=== PATIENT | female | born 1995 | race African-American/Black ===

== ENCOUNTER 2017-07-21 23:20 | Emergency (ER) | payer OTHER ==
[~2017-07-21] VITALS: Ht 149.9 cm; Wt 47.6 kg
[~2017-07-21 23:20] MED LIST: BACTRIM DS TAB1 EACH PO; FLAGYL500 MG PO; NOHOMEMEDICATIONS; PHENAZOPYRIDIN100 M1 PO
[2017-07-22] MEDS ORDERED: NAPROSYN500 MG PO (01:35)
[2017-07-22] MEDS ORDERED: GUAIFEN-CODEINE10 ML PO (01:40)
== END 2017-07-22 01:53 | disposition home or self-care (01) ==
LOC: ER 23:20
DX: M94.0 Chondrocostal junction syndrome [Tietze] (principal); F17.210 Nicotine dependence, cigarettes, uncomplicated

== ENCOUNTER 2017-12-12 22:59 | Emergency (ER) | payer OTHER ==
[~2017-12-12] VITALS: Ht 149.9 cm; Wt 54.4 kg
[~2017-12-12 22:59] MED LIST changes: +GUAIFEN-CODEINE10 ML PO; +NAPROSYN500 MG PO
[2017-12-12] MEDS ORDERED: TYLENOL EXTRA500 MG PO (23:32)
[2017-12-13 00:01] VITALS: BP 98/68
== END 2017-12-13 00:02 | disposition home or self-care (01) ==
LOC: ER 22:59
DX: Z53.21 Procedure and treatment not carried out due to patient leaving prior to being seen by health care provider (principal)